=== PATIENT | female | born 1950 | race Caucasian/White ===

== ENCOUNTER 2017-03-07 15:15 | Emergency (ER) | payer OTHER ==
[2017-03-07 15:27] VITALS: RESP 16
--- NOTE | 2017-03-07 15:45 | EDPHY ---
H & P Stated Complaint: UTI Time Seen by Provider: 03/07/17 15:45 HPI/ROS: CHIEF COMPLAINT: Bladder spasms, questionable UTI HISTORY OF PRESENT ILLNESS: The patient presents to the ED with increasing bladder spasms. She has a history of a suprapubic catheter secondary to underlying neurologic disease. The patient denies fever, vomiting or flank pain. She reports her suprapubic catheter is typically changed every 30 days. The patient denies any history of fall or trauma. She denies any additional acute complaints. She states her symptoms are mild in nature. REVIEW OF SYSTEMS: A comprehensive 10 point review of systems is otherwise negative aside from elements mentioned in the history of present illness. Source: Patient - Personal History Current Tetanus Diphtheria and Acellular Pertussis (TDAP): Yes Tetanus Vaccine Date: 2010 - Medical/Surgical History Other PMH: PARKINSONS, MSA, NEGRON CATHETER, CLAVICLE FX W/ SURGICAL REPAIR - Social History Smoking Status: Never smoked - Physical Exam Exam: General Appearance: Alert, no distress Eyes: Pupils equal and round no pallor or injection ENT, Mouth: Mucous membranes moist Respiratory: There are no retractions, lungs are clear to auscultation Cardiovascular: Regular rate and rhythm Gastrointestinal: Abdomen is soft and nontender, no masses, bowel sounds normal , suprapubic catheter in place Neurological: Chronic weakness secondary to her underlying neurologic disease Skin: Warm and dry, no rashes Musculoskeletal: Neck is supple nontender Extremities: symmetrical, full range of motion Constitutional: Initial Vital Signs Temperature (C) 36.5 C 03/07/17 15:24 Heart Rate 69 03/07/17 15:24 Respiratory Rate 16 03/07/17 15:24 Blood Pressure 125/80 H 03/07/17 15:24 O2 Sat (%) 99 03/07/17 15:24 O2 Delivery Mode Room Air Allergies/Adverse Reactions: Sulfa (Sulfonamide Antibiotics) Allergy (Verified 03/07/17 15:22) Home Medications: Medication Instructions Recorded ALENDRONATE SODIUM 03/07/17 Azilect 03/07/17 Carbidopa-Levo 25-100 mg Odt 03/07/17 Cephalexin [Keflex] 500 mg PO QID #28 cap 03/07/17 Colace 03/07/17 Melatonin 03/07/17 Miralax 17 gm (*) 03/07/17 Oxybutynin 03/07/17 Paxil 03/07/17 Probiotic 03/07/17 Pyridostigmine [place] 03/07/17 Senna 03/07/17 Medical Decision Making ED Course/Re-evaluation: The patient presents to the ED with bladder spasms. The patient's urine will be cultured. She will be started on Keflex. She likely is chronically colonized. The patient's suprapubic catheter has been changed in the emergency department. She has no clinical evidence of pyelonephritis or acute abdomen. The patient will be discharged home in stable condition. She will contact the emergency department in 2 days to check the results of her urine culture. She is advised to return to the emergency department for increasing pain, fever , vomiting or other concerns. Differential Diagnosis: Differential diagnosis considered includes UTI, pyelonephritis, bladder spasm - Data Points Laboratory Results: 03/07/17 16:30 Urine Color YELLOW Urine Appearance MODERATELY TURBID Urine pH 6.0 (5.0-7.5) Ur Specific [place] 1.010 (1.002-1.030) Urine Protein NEGATIVE (NEGATIVE) Urine Ketones TRACE H (NEGATIVE) Urine Blood 1+ H (NEGATIVE) Urine Nitrate NEGATIVE (NEGATIVE) Urine Bilirubin NEGATIVE (NEGATIVE) Urine Urobilinogen NEGATIVE EU EU (0.2-1.0) Ur Leukocyte Esterase 3+ H (NEGATIVE) Urine RBC 10-15 /hpf H /hpf (0-3) Urine WBC 50-182 /hpf H /hpf (0-3) Ur Epithelial Cells TRACE /lpf /lpf (NONE-1+) Calcium Oxalate Crystal PRESENT /hpf /hpf (NONE-1+) Urine Mucus TRACE /lpf /lpf (NONE-1+) Urine Yeast PRESENT /hpf /hpf (NONE SEEN) Urine Glucose NEGATIVE (NEGATIVE) Departure - Departure Disposition: Home, Routine, Self-Care Clinical Impression: Urinary tract infection Condition: Good Instructions: Catheter-associated Urinary Tract Infection (ED) Additional Instructions: 1. Please take antibiotics as directed for next 7 days. 2. Please return to the ED for any fever, vomiting, increasing pain or other concerns. 3. Please contact the emergency department in 2 days to check the results of your urine culture. 4. Please follow-up with your primary care provider as scheduled.
[2017-03-07] MEDS ORDERED: CEPHALEXIN 500 MG CAP PO ONE (17:21)
[2017-03-07 17:36] VITALS: BP 128/78; PULSE 81; TEMP 98.6; O2SAT 98
== END 2017-03-07 17:36 | disposition home or self-care (01) ==
DX: N39.0 Urinary tract infection, site not specified (principal)

== ENCOUNTER 2017-03-08 15:18 | Emergency (ER) | payer OTHER ==
[2017-03-08 15:32] VITALS: RESP 18
--- NOTE | 2017-03-08 17:16 | EDPHY ---
H & P Time Seen by Provider: 03/08/17 16:39 HPI/ROS: HPI Suprapubic catheter problem. 66-year-old female by private vehicle with her friend. This patient has a Parkinson's related degenerative neurologic condition. She was seen in our emergency department yesterday to have a suprapubic catheter changed out. This was for a scheduled change out. The catheter was changed out without any complication but to a non latex more rigid catheter than what she is used to. She returns to the emergency department today asking if we have a softer latex catheter that we can replace the catheter that was placed yesterday with. She is also wondering if her urine culture results are back from her urinalysis. She was placed on Keflex secondary to white cells on her urinalysis. She otherwise denies any complaints. ROS: Constitutional: No fever, no chills. No weakness. Gastrointestinal: No abdominal pain, no vomiting, no diarrhea. Genitourinary: No hematuria. As above. Musculoskeletal: No back pain. Skin: No rashes. Neurological: Baseline. No new complaints. Past medical history: Parkinson's, MSA, suprapubic catheter as above. Social history: Nonsmoker. She is from [place]. She is visiting with her friend here in [place]. She is due to fly to [facility] tomorrow. Physical Exam: General Appearance: Alert, no distress. This patient is responding to questions appropriately and in full sentences. This patient appears well- hydrated and well-nourished. Gastrointestinal: Abdomen is soft and nontender, no masses, bowel sounds normal. No focal tenderness at McBurney's point. No Thomson sign. Suprapubic catheter site is clean dry and intact. Clear urine is in the catheter tubing with 800 cc of clear to yellowish urine in the collection bag. It appears to be functioning properly. Neurological: Motor sensory function baseline. Skin: Warm and dry, no rashes. Database: EKG: Imaging: Procedures: Emergency department course: Vital signs were reviewed. She is afebrile. Vital signs otherwise unremarkable. We searched the hospital for a soft latex catheter to replace her suprapubic catheter with. We do not have this type of catheter in our hospital. The patient was also concerned about the results of her urine culture and whether she was on the correct antibiotic. I do not find an order for a urine culture from her visit yesterday. The lab still had her urine. A culture has been ordered on that urine and is being processed. The patient otherwise feels comfortable going home. She is to return to [place] on March 13 and will have her catheter replaced with a soft latex catheter at that time. She will call Friday afternoon for her culture results and sensitivities. Return to emergency department precautions were reviewed with her. All of her questions were answered. She was discharged in good condition. Differential Diagnosis: The differential diagnosis on this patient includes but is not limited to suprapubic catheter problem. Serious bacterial infection, new neurologic deficit unlikely. This represents a partial list of diagnoses considered. These considerations are based on history, physical exam, past history, reassessment and diagnostic testing. Smoking Status: Never smoked Constitutional: Initial Vital Signs Temperature (C) 36.5 C 03/08/17 15:26 Heart Rate 79 03/08/17 15:26 Respiratory Rate 18 03/08/17 15:26 Blood Pressure 97/63 L 03/08/17 15:26 O2 Sat (%) 96 03/08/17 15:26 O2 Delivery Mode Room Air Allergies/Adverse Reactions: Sulfa (Sulfonamide Antibiotics) Allergy (Verified 03/07/17 15:22) Home Medications: Medication Instructions Recorded ALENDRONATE SODIUM 03/07/17 Azilect 03/07/17 Carbidopa-Levo 25-100 mg Odt 03/07/17 Cephalexin [Keflex] 500 mg PO QID #28 cap 03/07/17 Colace 03/07/17 Melatonin 03/07/17 Miralax 17 gm (*) 03/07/17 Oxybutynin 03/07/17 Paxil 03/07/17 Probiotic 03/07/17 Pyridostigmine [place] 03/07/17 Senna 03/07/17 Departure - Departure Disposition: Home, Routine, Self-Care Clinical Impression: Encounter for suprapubic catheter care Condition: Good Instructions: How to Care for Your Suprapubic Catheter (ED) Additional Instructions: Read and follow provided instructions. Call Friday afternoon for preliminary urine culture results as discussed. Return to the emergency department for fever, worsening pain or discomfort or other serious concerns. Referrals: [facility] [Other] - As per Instructions
[2017-03-08 17:24] VITALS: BP 101/64; PULSE 81; TEMP 97.9; O2SAT 95
== END 2017-03-08 17:27 | disposition home or self-care (01) ==
DX: Z43.5 Encounter for attention to cystostomy (principal); G20 Parkinson's disease